=== PATIENT | male | born 1965 | race Caucasian/White ===

== ENCOUNTER 2018-05-22 10:03 | Emergency (ER) | payer MEDICAID, OTHER ==
[2018-05-22 10:09] VITALS: BP 159/99; PULSE 56; RESP 20; TEMP 98.5; O2SAT 100
--- NOTE | 2018-05-22 10:38 | C.PDOC ---
History Of Present Illness Patient is a 52 year old male who presents to the ED requesting medication refill and an orthopedic referral. Patient states that he was recently released from [facility] 2 months ago and his insurance has not began yet so he has not been able to follow up with a specialist. He states that while in [facility] he was diagnosed with bilateral meniscus knee tears with an MRI. He states that during preop testing he also had a abnormal nuclear stress test after which he was given medications. Patient denies any other medical c/o. Time Seen by Provider: 05/22/18 10:12 Chief Complaint (Nursing): Lower Extremity Problem/Injury History Per: Patient History/Exam Limitations: no limitations Recent travel outside of the [place]: No Additional History Per: Patient Past Medical History Reviewed: Historical Data, Nursing Documentation, Vital Signs Vital Signs: Last Vital Signs Temp 98.5 F 05/22/18 10:08 Pulse 56 L 05/22/18 10:08 Resp 20 05/22/18 10:08 BP 159/99 H 05/22/18 10:08 Pulse Ox 100 05/22/18 10:08 - Medical History PMH: HTN, Hypercholesterolemia Surgical History: No Surg Hx Family History: States: No Known Family Hx - Social History Hx Tobacco Use: Yes Hx Alcohol Use: No Hx Substance Use: No - Immunization History Hx Tetanus Toxoid Vaccination: No Hx Influenza Vaccination: No Hx Pneumococcal Vaccination: No Review Of Systems Musculoskeletal: Positive for: Leg Pain (bilateral menicus knee tears ) Physical Exam - Physical Exam Appears: Non-toxic, No Acute Distress Skin: Normal Color, Warm, Dry Head: Atraumatic, Normacephalic Cardiovascular: Rhythm Regular, No Murmur Respiratory: Normal Breath Sounds, No Rales, No Rhonchi, No Wheezing Extremity: Normal ROM, No Tenderness (bilateral knees), No Deformity (bilateral knees), No Swelling (bilateral knees) Neurological/Psych: Oriented x3, Normal Speech Gait: Steady ED Course And Treatment O2 Sat by Pulse Oximetry: 100 (on RA) Pulse Ox Interpretation: Normal Progress Note: Prescriptions given and told to follow up with Disposition Counseled Patient/Family Regarding: Diagnosis, Need For Followup, Rx Given - Disposition Referrals: Jane Tafoya MD [Staff Provider] - [facility] [Outside] Disposition: HOME/ ROUTINE Disposition Time: 10:35 Condition: STABLE Additional Instructions: FOLLOW UP WITH ORTHOPEDICS WITHIN 1 WEEK FOLLOW UP IN THE MEDICAL CLINIC IN 1-2 DAYS FOR MEDICAL CARE AND FUTURE PRESCRIPTIONS RETURN TO ER IF YOU HAVE ANY CONCERNING SYMPTOMS Prescriptions: Acetaminophen [Tylenol 325mg tab] 650 mg PO Q6 PRN #60 tab PRN Reason: pain/fever Aspirin [Ecotrin] 81 mg PO DAILY #30 tablet. Atorvastatin [Lipitor] 20 mg PO DAILY #30 tab hydroCHLOROthiazide [Hydrodiuril] 25 mg PO DAILY #30 tab Metoprolol Tartrate 50 mg PO DAILY #30 tablet Naproxen [Naprosyn] 1 tab PO BID PRN #60 tab PRN Reason: Pain Nortriptyline HCl [Pamelor] 25 mg PO HS #30 capsule Instructions: Meniscal Tear (DC) Forms: [facility] ([place]ican) Print Language: BRITISH - Clinical Impression Clinical Impression: Medication refill, History of torn meniscus of left knee, History of torn meniscus of right knee - Scribe Statement The provider has reviewed the documentation as recorded by the Fawad Holden All medical record entries made by the Alexeiibrylan were at my direction and personally dictated by me. I have reviewed the chart and agree that the record accurately reflects my personal performance of the history, physical exam, medical decision making, and the department course for this patient. I have also personally directed, reviewed, and agree with the discharge instructions and disposition.
== END 2018-05-22 10:48 | disposition home or self-care (01) ==
LOC: C.ER 10:03
DX: Z76.0 Encounter for issue of repeat prescription (principal); Z87.39 Personal history of other diseases of the musculoskeletal system and connective tissue